=== PATIENT | female | born 1930 | race Caucasian/White ===

== ENCOUNTER 2016-11-28 09:13 | Outpatient (CLI) | payer MEDICARE ==
[2016-11-28 09:40] LABS: BASOPHILS % 0.6 (0.0-1.5); EOSINOPHILS % 2.8 % (0.0-6.8); MEAN CORPUSCULAR HEMOGLOBIN 33.7 pg (28.0-34.0); MEAN CORPUSCULAR VOLUME 100.6 fl (80.0-100.0); MONOCYTES % 4.9 % (0.0-11.0); NEUTROPHILS # 4.1 # k/uL (1.4-7.7)
[2016-11-28 10:15] LABS: eGFR (African) > 60; eGFR (Non-African) > 60
== END 2016-11-28 09:14 ==
LOC: LAB 09:13
PROVIDERS: ATTEND Internal Medicine
DX: Z00.00 Encounter for general adult medical examination without abnormal findings (principal); M15.8 Other polyosteoarthritis; I10 Essential (primary) hypertension; M81.6 Localized osteoporosis [Lequesne]; E11.9 Type 2 diabetes mellitus without complications
CPT/HCPCS: 36415; 80053; 82306; 83036; 84443; 85025